=== PATIENT | female | born 1970 | race Caucasian/White ===

== ENCOUNTER → 2020-03-20 | Outpatient (CLI) | payer BC ==
--- NOTE | 2020-03-20 17:34 | EEG ---
ELECTROENCEPHALOGRAM REPORT DATE OF SERVICE: 03/20/2020. CLINICAL HISTORY: This is a 49-year-old female with reported history of seizure and asthma that has episodes of slumping over and happens a couple times a month. The patient is aware of her surrounding during the episodes. This video EEG was obtained to evaluate for seizure and epileptiform activity. EEG TYPE: A 21 channel routine EEG was performed with video using the 10-20 electrode placement system. Description is wakefulness and drowsiness is obtained. During wakefulness, there is a posterior dominant rhythm of 9-10 hertz of moderate voltage, well modulated, well sustained. During drowsiness, there is slowing and attenuation of the background activity. There is no stage 2 sleep architecture seen. There are occasional to frequent runs of moderate voltage of 9-10 hertz alpha that are sharply contoured and they seem to be nonrhythmic to semirhtyhmic over the right temporal region, lasting from 3 seconds up to 60 seconds without any clear evolution. These episodes occur when the patient closes her eyes. There is no clinical event. Ictal none. ACTIVATION PROCEDURE: Photic stimulation did evoke photic driving, mostly over the right hemisphere at some flash frequency. HYPERVENTILATION: No clear ictal activity during hyperventilation or focal slowing. CLINICAL INTERPRETATION: This is an abnormal routine EEG. The patient had sharply contoured activity over the right temporal region, lasting from less than 10 seconds up to 60 seconds without any clear evolution to seizure. This finding places the patient at risk of focal aware, focal impaired and bilateral convulsive seizure. As stated above, there is no clear seizure activity during the study. Clinical correlation is recommended. RECOMMENDATION: I recommend long-term EEG with video to assess whether the sharp activity truly evolved into a seizure or not. Consider escalation of anti-epileptic medication (AED) if the patient continues to have episodes of seizure-like activity to assess whether they improve or not, especially with the sharp activity finding on EEG. MMODL / IJN: [id number] / GABRIELA
--- NOTE | 2020-04-22 09:06 | EEG ---
ELECTROENCEPHALOGRAM REPORT ADDENDUM: Upon re-reviewing the EEG, the initial sharply contoured activity over the right temporal region was actually in fact are wickett (which is normal variant). Therefore, routine EEG is normal. There are no focal slowing, epileptiform activity or seizures seen during the study. RECOMMENDATION: If the patient continues to have seizure-like spells, recommend long-term EEG or epilepsy monitoring unit (EMU). Regarding the use of anti-epileptic medication, I will defer it to the primary team or the neurologist that is taking care of the patient. . This was updated to the patient's primary team, Dr. Leona Del Rio on 04/21/2020. MMODL / IJN: [id number] / MTDShahab
== END | disposition home or self-care (01) ==
LOC: NEUROMAIN 07:51
PROVIDERS: ATTEND Family Medicine
DX: R94.01 Abnormal electroencephalogram [EEG] (principal); R55 Syncope and collapse
CPT/HCPCS: 95819

== ENCOUNTER → 2020-12-16 | Outpatient (CLI) | payer BC ==
--- NOTE | 2020-12-16 17:05 | CONS ---
CONSULTATION 50-year-old lady has [facility] evaluated [facility] for episodes of awakening from sleep with gasping for air and significant amount of movements during sleep and restless symptoms in awake. HISTORY OF PRESENT ILLNESS/SLEEP WAKE EVALUATION: SLEEP SCHEDULE: Patient's usual sleep schedule from 10 to 12 midnight until 6:30/8 am basically on weekdays and from midnight until 6:30/8 am on weekends. FALLING ASLEEP: She does have problems with falling asleep. DURING SLEEP: Usually sleeps on the side position. She moves a lot during sleep. She grinds her teeth. She wakes up with episodes of gasping for air, sweating, palpitation, dry mouth. She denied any snoring. She wakes up from sleep 4 times with 2 episodes of nocturia. Sometimes, she may see dreams right away and possible hypnagogic hallucinations but no history of cataplexy or sleep paralysis. Bessemer Sleepiness Scale is 6. DURING THE DAY/SLEEP WAKE EVALUATION: The patient does not take any naps. She drinks 1 cup of coffee during the day in the morning, usually. She did increase her weight for the last year on about 20 pounds. According to patient, oximetry at home showed dropped oxygen during sleep to 82%. PAST MEDICAL HISTORY: Positive for asthma, arthritis, sinus problems, headaches, iron deficiency anemia, acid reflux, and episodes of SVT during Holter monitor according to the patient, episodes of seizures when she was a child. PAST SURGICAL HISTORY: Status post laparoscopy for endometriosis 2 times. MEDICATIONS: Lamotrigine 25 mg twice a day, Adderall 15 mg once a day. SOCIAL HISTORY: Positive for smoking for 26 pack years, quit in 2016. Alcohol consumption: None. FAMILY HISTORY: Hypertension, hyperlipidemia, sleep apnea, snoring. REVIEW OF SYSTEMS: Multiple awakenings from sleep difficulties to concentrate during the day, problems with memory. PHYSICAL EXAMINATION: GENERAL: A pleasant lady without distress. BP 143/83, HR 71, RR 12, height 5 feet 6 inches, weight 152.6, temperature is 98.0, oxygen saturation on room air 100%. Oropharynx extremely low position of soft palate. Mallampati IV. NECK: 13.5 inches inches in circumference, BMI 24.5. Neck supple, no JVD. Thyroid is not palpable. LUNGS: Clear to percussion and to auscultation. Good air exchange. No wheezing or rhonchi. HEART: S1, S2 regular. No murmurs, gallops, or rubs. ABDOMEN: Soft and nontender. Bowel sounds are present. No organomegaly appreciated. EXTREMITIES: No clubbing or cyanosis. MATERIAL CONTROL SPECIALIST: Awake, alert, and oriented X3. Cranial nerves 2 to 7 intact. There is no fasciculation or atrophy. noted. No focal deficits observed. IMPRESSION: 1. Multiple awakenings from sleep with episodes of gasping for air, extremely low position of soft palate. Possible obstructive sleep apnea-hypopnea syndrome, but no history of snoring. Normal body mass index 24.5. 2. Significant amount of movements during the sleep, possibly periodic limb movements. 3. Restless leg symptoms. 4. History of iron deficiency anemia, iron deficiency may increase risk for periodic limb movements and restless legs syndrome. 5. Insomnia with difficulties to initiate sleep. 6. History of asthma. 7. History of acid reflux. 8. History of seizure disorder in childhood. 9. Headaches. 10.Difficulties to concentrate during the day on treatment with Adderall. 11.History of SVT on Holter monitor according to patient. PLAN: 1. Polysomnography to check the patient's breathing during sleep, but also to check for periodic limb movements during the night. 2. Following plan after reviewing the results of the sleep study. 3. Sleep hygiene with regular time in bed for 7-1/2 to 8 hours. 4. No driving if feeling sleepiness. Thank you very much for referring this patient for consultation. Sincerely, Alexis Vinson MD, PhD, FAASM Diplomat of [employer] [facility] [place] MMODL / LUISA: [id number] /
== END ==
LOC: SLEEP 10:23
PROVIDERS: ATTEND Internal Medicine
DX: G47.00 Insomnia, unspecified (principal); G25.81 Restless legs syndrome; J45.909 Unspecified asthma, uncomplicated; K21.9 Gastro-esophageal reflux disease without esophagitis; G40.909 Epilepsy, unspecified, not intractable, without status epilepticus; Z86.79 Personal history of other diseases of the circulatory system
CPT/HCPCS: 99211

== ENCOUNTER 2024-10-25 12:12 | Day surgery (SDC) | payer BC ==
[2024-10-24 11:52] VITALS: BMI 21.7
[2024-10-25 12:50] VITALS: RESP 16; TEMP 97.5
[2024-10-25] MEDS: IV FLUID CONTINUATION 1,000 ML IV ONE (12:51)
[2024-10-25] MEDS: LACTATED RINGERS 1,000 ML IV SCH (12:51)
[2024-10-25] MEDS: LIDOCAINE 1% (10MG/ML) FOR IV START INTRADERMA STA (12:51)
[2024-10-25] MEDS ORDERED: PROPOFOL 10 MG/ML 20 ML VIAL IV ONE (13:23)
[2024-10-25] MEDS ORDERED: LIDOCAINE 1% INJ 10MG/ML (20 ML MDV) ONE (13:23)
--- NOTE | 2024-10-25 13:57 | P.PCN ---
Date of Procedure: 10/25/24 Procedure(s) Performed: BRIEF HISTORY: Patient is a 54-year-old pleasant female scheduled for an elective colonoscopy as a part of screening for colon cancer. PROCEDURE PERFORMED: Colonoscopy. PREOPERATIVE DIAGNOSIS: Screening for colon cancer. IV sedation per Anesthesia. PROCEDURE: After informed consent was obtained, the patient, was brought into the endoscopy unit. IV sedation was administered by Anesthesia under continuous monitoring. Digital rectal examination was normal. Initially the Olympus CF-160 flexible video colonoscope was then inserted in the rectum, gradually advanced into the cecum without any difficulty. Careful examination was performed as the scope was gradually being withdrawn. Ileocecal valve and the appendiceal orifice were visualized and appeared normal. Prep was poor. . Katter irrigation was performed. The visualized portions of the mucosa of the cecum, ascending colon, transverse colon, descending colon, sigmoid colon, and rectum appeared normal. Retroflexion was performed in the rectum and no lesions were seen. The patient tolerated the procedure well. IMPRESSION: Normal-appearing colon from rectum to cecum with negative colorectal neoplasia. Poor prep in several areas of the colon. RECOMMENDATIONS: Findings of this examination were discussed with the patient as well as her family. She was advised to have repeat colonoscopy in 3 years because of the extremely poor prep that was seen on today's examination..
[2024-10-25 14:15] VITALS: BP 100/64; PULSE 68
== END 2024-10-25 15:02 | disposition home or self-care (01) ==
LOC: ORWHC2ENDO 12:12
PROVIDERS: ATTEND Internal Medicine Gastroenterology
DX: Z12.11 Encounter for screening for malignant neoplasm of colon (principal); I47.10 Supraventricular tachycardia, unspecified; I34.9 Nonrheumatic mitral valve disorder, unspecified; F90.9 Attention-deficit hyperactivity disorder, unspecified type; Z86.69 Personal history of other diseases of the nervous system and sense organs; Z79.899 Other long term (current) drug therapy
CPT/HCPCS: 81025; 45378; J2003; J2704